=== PATIENT | female | born 1970 | race Caucasian/White ===

== ENCOUNTER 2018-01-18 12:30 | Outpatient (RCR) | payer MEDICAID, SELFPAY ==
--- NOTE | 2018-01-02 12:30 | IE_ITS ---
Date: January 02, 2018 Referring: Gilda Polanco MD M.D. Diagnosis: Bilateral thoracic outlet syndrome P.T. 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 SUBJECTIVE: History of Present Illness: Trena reporting to PT reporting a chronic history of bilateral UE paresthesias of 10-12 years of idiopathic origin. Reports a non -compliant history of seeking medical help from the pain clinic at [facility], with poor PCP follow up consultations. Admits she is not one to go to the doctor, which explains her lack of consistent medical care for her condition. She explains symptoms that involve bilateral UE numbness and tingling, hand numbness R greater than L, particularly through the medial distribution. Her main complaint and primary discomfort is of cervical, thoracic junction, paresthesias explaining a sensation of bugs, numbness, and fire at all times through the central aspect of her spine. She went camping over the weekend and feels she may have strained her L shoulder as she recalls falling at one point, but is not certain if this is the cause, but she is unable to lift her L arm without severe pain. This of course has made her paresthesias worse in the L UE. As of recent, she feels that she has had increase in poor vision, increase in migraine. She has noticed some episodes of what she calls vertigo where she explains she is standing next to an elevator door and she feels like the floor is moving up and down and this also happened to her one other time while standing in a bathroom. She does not report any dizziness with movement of her head. She denies drop attacks, double vision, denies vomiting, change in bladder or bowel habits or control. Overall feels steady with ambulation. Denies any LE weakness or pain. Her other main complaint is of remarkable sleep disruption, she reports only getting 45 to 60 mins of sleep at a time secondary to sensation of pain and pressure in her hands and UEs. Overall, only about 4-6 hours per night, but nothing consistent or productive. She denies ever attempting any wrist immobilizers, no tens unit. She does recall at one point being evaluated via nerve conduction studies to the UE's, but were (-) for any findings. She has never seen a air quality instrument specialist to her recollection. Pain Rating: Constantly 3/10, increasing up to a 7/10 when most symptomatic. Pain Location: Central cervical, thoracic junction, spreading laterally along the fascia, bilateral UE paresthesias explaining more R involved than L with median nerve distribution. Prior Level of Function: WNL Current Level of Function: Sleep disruption, she is even unable to do her dishes, open her car door, lift heavy objects, particularly new onset of L shoulder pain, difficulty manipulating objects in the morning her hands are numb to the point where she sometimes has a hard time doing toileting hygiene, and headaches. Previous Treatment: Did undergo some chiropractic manipulations without termite technician relief. She has been seen by the pain clinic in [facility] , reporting injections,all of which did not offer any relief. She does not specify what drugs were utilized due to poor memory recall of this. 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 Surgical hx: Insignificant. Falls in the last year: __x__ No ____Yes - How many? ____ - (if over 2, balance SM needs to be completed) Reported hospitalizations in the last year - __x__ No ____ Yes - Dates of admission/reason: Medications: Lyrica, Naproxen prn. Lyrica is a new prescription that she has not initiated yet. 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 She has 4 children, she is single. Standardized Measures: DASH score: __25%__ NDI score: __34%__ OBJECTIVE: Diagnostics: MRI completed on 02/20/15 identifying disc osteophyte complex at C4 -5 and C5-6 with mild central canal spinal stenosis C5-6 and bilateral neuroforaminal stenosis each of these levels. No recent diagnostics. Dr. Polanco finds the reported MRI results to be unremarkable. Posture: Remarkable protrusion of bilateral shoulders symmetrically with increase in thoracic kyphosis as a result, she is large chested, compensatory forward head and mid cervical extensions as a result. No obvious curvature of the spine, but when lying prone I do observe more hypertrophy of her L thoracic paraspinals compared to her R. Observation: (behavior, atrophy, skin color, etc.) Quick histamine response L thoracic paraspinals with IASTM, emotional with soft tissue mobilization over the cervical, thoracic region. She does communicate well, she appears exhausted from her pain. Gait: WNL, toe and heel walk WNL. Palpation: Sensitive to even light touch over the cervical, thoracic fascia, extend this to the upper traps, OA is tissue is restricted with a lot of tension , mild pain upon palpation. Has bilateral cervical, thoracic paraspinal tension L greater than R. UE not assessed today. Further assess L shoulder at later visit. Edema: None ROM: C-spine L rotation 60 degrees with R arm paresthesias, R rotation 50 degrees with R arm paresthesias, 20 degrees extension with paresthesias L arm, 45 degrees flexion with fascial stretching through the cervical, thoracic junction, no paresthesias. R UE WNL, non-irritable. L shoulder flexion 160, abduction 150, pain resulting over the superior/ posterior aspect of the shoulder. IR/ER WNL and non-irritable, otherwise bilateral UE's are WNL. Lumbar spine WNL and non-irritable. Joint Accessory Motion: Avoid PAs of the c-spine and thoracic spine due to pain dominant condition. Attempt some gentle articular sidegliding, producing severe pain at lower cervical segments with patient tearing. These were only performed at a grade 1++. This resulted in contralateral spine discomfort, no UE paresthesias. Strength: R UE is grossly 5/5 throughout. L shoulder flexion is 4+/5, L 4/5 with pain resulting, local to the L shoulder. IR/ER bilaterally 5/5. Distal elbow and digits are WNL. C-spine isometrics deferred due to pain dominant condition. Neuro: UE screen is (-) Balance: WNL with Romberg, and single leg stance. Special Tests: (+) Spurling's, relief with cervical traction, (+) Adson's, costoclavicular, (-) Phalen's and Prayer's testing. (-) Hawkin's Cesario impingement testing to the L shoulder, (+) empty can, (-) Speed's, (-) lift off. Treatment: IE: [id number] Patient Education: L UE shoulder stretching, passively utilizing wall into flexion/abduction as well as L lower trap isometric for postural correction. Instructed in sitting tall imaging helium balloon at top of her head, but not to over correct to reduce aggravation to her fascial tissue. Manual therapy: ([id number]). Manual cervical traction, unilateral traction, gentle cervical facet up gliding, soft tissue mobilization to the thoracic and cervical paraspinals, gentle OA release, IASTM down regulation to the cervical and thoracic paraspinals and bilateral upper traps. Rock taping applied with fascia on stretch through the cervical, thoracic paraspinals and perpendicular to this over the bilateral upper traps. Educated to use hot/cold modalities as needed for pain relief post treatment if she has exacerbation, and to utilize proper posture the best that she can. Direct treatment time: 70 mins Total treatment time: 70 mins ASSESSMENT: Patient is a 47-year-old female, referred for PT services with the diagnosis of bilateral TOS . Patient presents with clinical signs and symptoms consistent with bilateral TOS, L supraspinatus tendinitis, chronic soft tissue dysfunction of the cervical, thoracic region, and cervical nerve root compromise, likely related to degenerative changes in the c-spine. The patient is a pain dominant condition, as demonstrated by the following impairment level findings: Limited cervical ROM, soft tissue dysfunction through the cervical and thoracic region, L shoulder weakness, and isolated supraspinatus weakness, L shoulder mobility deficits, postural deficit/impairment, and poor intrinsic stability, and body awareness. Impairments are contributing to the following functional limitations:Difficulty manipulating any objects, particularly heavy objects, open/closing a door, remarkable sleep disruption, difficulty with self care activities in the a.m. hours, chronic headaches and migraines, and emotional distress. Patient is assessed as: ____ Low 74457 __X__ Moderate 16500 ____ High 37267 complexity, based on the following: History: (list): Anxiety and emotional distress due to chronic pain X See comorbidities and social history. Examination: (list): X See above for functional limitations and impairments. Presentation: Stable . X Evolving Unstable Decision-Making: Low complexity X Moderate complexity High complexity % Disability based on NDI of a 34% disability and DASH of a 25%. __X__ Patient requires skilled PT intervention to remediate the above functional limitations to return to: __X__ Return to full functional mobility __X__ Other: Pain management Prognosis: ____ Excellent __X__ Good ____ Fair ____ Poor STG: __6__ weeks. 1: NDI improved to 25% disability. 2: Dash improved to 20% disability. 3: Patient able to sleep up to an hour and half at one time consistently, getting a total of 7-8 hours per night. 4: Patient reporting overall improvement since initiating PT services of 40% improvement. LTG: __12__ weeks. 1: Able to continue with a self maintenance program. 2: Overall reporting 80% improvement since initiating PT services. 3: DASH and NDI decreased to at least 15% disability. 4: Headaches decreased to 2x a week of low pain intensity, not to exceed 2/10. 5: Patient is now sleeping 2 1/2 to 3 hours at a time for a total of 8 hours. PLAN: Patient to be seen 2 x per week, for 12 weeks, adjusting frequency of visits per patient symptoms and response to treatment. Treatment to include: Neuromuscular re-education for intrinsic deep neck flexor and lower trap, NTRA body awareness exercises and isometric training for proper spinal stability to reduce over recruitment of large muscle groups, currently suffering from soft tissue dysfunction. Therapeutic exercise for gross whole body conditioning and strengthening to return fascia to normal state. Manual therapy for c-spine and L shoulder mobilizations, soft tissue mobilization through the cervical and thoracic, and L shoulder girdle. Spinal mobilizations as tolerated, and bilateral nerve gliding. Electric stimulation for Tens unit set up and self use instruction Aquatic therapy for low impact exercise of the upper body, general intrinsic strengthening and mobility efforts, pain management. If patient has poor response to PT management over the next 3-4 weeks, I do feel spinal consultation is more than appropriate. Thank you for this referral. Please do not hesitate to contact me with any questions or concerns regarding this patient's plan of care. cc: Gilda Rothman MD
--- NOTE | 2018-01-11 14:18 | PTTR_ITS ---
DATE: 01/11/18 SUBJECTIVE: Pt reports that she has to leave to go back to work soon so she doesn't have a lot of time left for treatment. OBJECTIVE: Co Treatment with PT Batsheva Lozano Manual therapy: ([id number]). Pt received IASTM with down regulation while in the child pose position starting at the cervical para spinals down to the lumbar para spinals. Pt then transitioned into the seated position while in a forward posturing flexed position. Therapeutic procedures ([id number]). * X Provided skilled instruction in proper exercise performance: Pt completed cervical stabilization ther ex and scapular stabilization while in the prone position as per flow sheet 5 reps each to tolerance. Direct treatment time: 15 Total treatment time: 15
--- NOTE | 2018-01-11 14:31 | PTTR_ITS ---
DATE: 01/11/18 SUBJECTIVE: Trena reports she actually had 1-2 day relief following her first treatment. Rock tape offered relief for a few days, then began to itch, so she removed it. She think she is having some side affects from the Lyrica, such as head itching and diarrhea. She has not purchased wrist immobilizers. OBJECTIVE: KX applied to all codes N/A Manual therapy: ([id number]). L shoulder: Mobilization all planes, requiring use of AP MWM into flexion and quadrant position to reduce impingement discomfort. Supraspinatus tendon CFM, and muscle belly deep tissue mobilization. C-Spine: Manual traction, and unilateral traction, cervical massage facet upgliding. Articular side gliding bilaterally, grade 4++ B UE median and ulnar nerve flossing OA retraction, and flexion oscillations Mid cervical flexion stretching, with end range rotation to 30* Cervical paraspinal release, with OA release. Patient experienced rib and low back spasming throughout treatment, due to her position. She was transitioned to hooklying and review TrA, deep neck flexors, lower trap ad PPT position, which alleviated pain. She was then seen by Kalyani Moreira PTA for ther ex portion of treatment per my directions, see her note. Direct treatment time: 30 minutes Total treatment time: 30 minutes
--- NOTE | 2018-01-18 14:19 | PTTR_ITS ---
DATE: 01/18/18 SUBJECTIVE: Reduced pain in L shoulder, she has been compliant with her lower trap strengthening and using her core. Noticing less pressure in her head in the a.m. upon rising. Continues to struggle with daily pressure and myofasical pain through the neck and upper back. Feels her low back is a little better. Main complaint is off neck pain today. OBJECTIVE: Manual therapy: ([id number]). Unloading of c-spine via manual traction, and cervical facet upgliding. OA release Mid cervical flexion stretching, with end range rotation to 10* as tolerated. Articular sidegliding oscillations grade 4 STM throughout the cervical and upper thoracic paraspinals, posterior shoulder and upper trap L C1 and C2 PA's, grade 4. Upper cervical side glide mobilizations grade, with focus on L side, which demonstrated more restriction. C-spine mobs all planes, with good motion, but soft tissue restriction at end ranges. L shoulder mobilization with AP gliding at end range quadrant and flexion, no pain. AP gliding grade 4++ in neutral for genera desensitization. Patient Education: Reviewed tennis ball release at OA joint and reviewed L upper trap isometric vs. gravity in prone. Direct treatment time: 30 minutes Total treatment time: 30 minutes
== END 2018-01-20 23:59 | disposition home or self-care (01) ==
LOC: PT 12:30
PROVIDERS: PCP Physician Assistant Medical; Referring Provider Physician Assistant Medical; Visit Provider Physician Assistant Medical
DX: G54.0 Brachial plexus disorders (principal); M65.812 Other synovitis and tenosynovitis, left shoulder; M54.2 Cervicalgia; R20.2 Paresthesia of skin; M79.89 Other specified soft tissue disorders
CPT/HCPCS: 97110; 97140; 97162

== ENCOUNTER 2018-06-12 13:23 | Emergency (ER) | payer OTHER, MEDICAID, SELFPAY ==
[2018-06-12 13:27] VITALS: BP 180/108; PULSE 120; RESP 24; TEMP 36.3; O2SAT 97
--- NOTE | 2018-06-12 13:33 | W.ED.GENAD ---
Discharge Plan Disposition Patient Disposition: HOME Condition: Good Discharge Details Chief Complaint: Chest Pain Clinical Impression: Chest pain Primary Care Provider: Osman Gutiérrez ED Provider: Juan M Fu Home Meds and New Rx's Prescriptions: No Action naproxen 500 MG tablet 500 mg PO PRN PRN (Reason: Pain) RF: 0 Prilosec OTC 20 MG tablet,delayed release (DR/EC) 20 mg PO PRN Qty: 30 RF: 1 prazosin 2 mg Capsule 2 mg PO TID RF: 0 sumatriptan succinate 100 MG tablet 100 mg PO ONCE PRNRF: 0 lorazepam 2 mg tablet 2 mg PO DAILY MDD 2mg PRN (Reason: Anxiety) RF: 0 Discharge Instructions Instructions: Chest Pain (ED), Hypertension (ED) Additional Instructions: Please continue to take your home medications. If you notice any worsening of your symptoms, or any new symptoms such as vomiting, diarrhea, fever, chills, shortness of breath, chest pain, numbness, weakness, or fainting , please return immediately to the emergency department for reevaluation. Please follow up with your primary care provider as soon as possible for reassessment and reevaluation. As always, it was a pleasure participating in your medical care today. Referrals: Osman Gutiérrez PA [Primary Care Provider] - Discharge Data Discharge Date/Time-TO BE ENTERED AT DEPARTURE: 06/12/18 17:33 Medical Decision Making <Kush Sanabria MD - Last Filed: 06/13/18 10:47> 47 yo female with a hx of anxiety comes in with chief complaint of feeling shaky starting this morning and started to have chest pain while checking in to be seen here. She was started per pt on meloxicam last week for anxiety and states today was the first day she started to feel shaky and not herself. While being triaged she started to complain of sharp anterior chest pain. Denies radiation of the pain, has no diaphoresis or vomit. She does appear anxious on exam and took ativan prior to arrival for this so will hold on additional anxiety medications. She does smoke and drinks she states more than she should but doesn't drinnk every day, could have symptoms of mild alcohol withdrawal. Denies drug use. Her heart score is 3 based on age and risk factors, will obtain ecg. Her wells score is low, will send d dimer. She has clear lungs and no pleuritic pain so doubt ptx and no cough/fever so doubt pna. Has no tearing back pain to suggest dissection pt remains stable, HR now in the 90's and BP down to 150 systolic and states she feels significantly better. Initial lab work unremarkable other than d dimer over 1100 so cta ordered. Pt will be signed out to oncoming provider pending results of cta and also delta troponin/ekg Differential Diagnosis anxiety, nstemi, pe, dissection, electrolyte abnormality Imaging Data Radiologic Study: Attestation: I personally reviewed and interpreted this imaging study as follows: Imaging: X-Ray My impression: no acute findings Lab Data Lab results reviewed: Yes I reviewed the patient's lab results. ECG Data Attestation: I personally reviewed and interpreted this ECG (s) as follows: Prior ECG tracings: not available for review Interpretation: sinus tachcyardia, rate of 110, pr 170, no acute st t wave ischemic findings <Jua nM Fu DO - Last Filed: 06/12/18 17:20> Second EKG 16:35 Rate 97, WA 142 QTc 470, QRS 90, sinus rhythm, no significant ST elevations or depressions, inverted T wave in V1 small Q wave in lead III. No other acute abnormalities. EKG consistent with prior EKG earlier today. Patient's CT angiogram is negative for any acute process per radiology. Serial troponins and serial EKGs are benign. Patient's heart rate and blood pressure have normalized. She continues to look clinically well and shows no clear signs of severe DTs, severe anxiety, profound dehydration, and her signs and symptoms are clinically inconsistent with ACS, severe PE, dissection, or other acute chest pathology. I feel her symptoms may be multifactorial including mild dehydration, mild anxiety, and perhaps a mild amount of alcohol withdrawal. Patient states that she normally drinks at minimum is sixpack at night, last time she drank was 2 days ago on Tuesday. Her symptoms nearly completely resolved with her own Ativan which she took. With no signs of acute life-threatening process at this time I feel she can be safely discharged home with close follow-up with her primary care provider. We discussed the importance of continued medication adherence, and close follow-up with her PCP to discuss potential medication alternatives. I have extensively reviewed the treatment plan and discharge instructions with the patient. I have addressed all patient concerns at this time. The patient was made aware of what symptoms to monitor for that would warrant a return to the emergency department. Discussed the plan with the patient, they demonstrate verbal understanding and agreement with our assessment and plan at this time. HPI <Kush Sanabria MD - Last Filed: 06/13/18 10:47> General Mode of arrival: ambulatory. Date/Time Provider Initiated Documentation: 06/12/18 13:32. Limitations to Documentation: no limitations. Information obtained by: patient. History of Present Illness 47 year old F presents to the emergency department with the chief complaint of chest pain, described as moderate, with intensity rated at 4. Quality is described as aching, and is localized to the chest. Patient reports no radiation. Patient started experiencing this minute(s) (20) and it has been constant. No relieving factors improve symptom(s), Patient did receive the following treatments prior to arrival, other (ativan) Related Data Home Medications Medication Instructions Recorded Confirmed naproxen 500 mg PO PRN PRN tab-cap 03/10/15 06/12/18 omeprazole magnesium [Prilosec Otc] 20 mg PO PRN #30 tab-cap 01/05/18 06/12/18 lorazepam 2 mg PO DAILY PRN MDD 2mg 06/12/18 prazosin 2 mg PO TID 06/12/18 06/12/18 sumatriptan succinate 100 mg PO ONCE PRN 06/12/18 06/12/18 Previous Rx's Medication Instructions Recorded omeprazole magnesium [Prilosec Otc] 20 mg PO PRN #30 tab-cap 01/05/18 Allergies Allergy/AdvReac Type Severity Reaction Status Date / Time soy Allergy Intermediate Digestive Unverified 06/12/18 13:33 Problems lactase [From Dairy Aid] Allergy Mild Nausea Unverified 06/12/18 13:33 Penicillins Allergy Mild Hives Unverified 06/12/18 13:33 narcotic medications AdvReac Severe Nausea/projectile Uncoded 06/12/18 13:33 vomiting General Stated Complaint: Chest Pain MANDY: 2 Review of Systems <Kush Sanabria MD - Last Filed: 06/13/18 10:47> Review of Systems All systems reviewed & are unremarkable except as noted in HPI and below Constitutional Denies chills and Denies fever(s) Cardiovascular Denies dyspnea Respiratory Denies dyspnea Gastrointestinal Denies vomiting Integumentary/Breasts Denies rash PFSH <Kush Sanabria MD - Last Filed: 06/13/18 10:47> Social History Smoking/Tobacco Use Status: Current every day Exam <Kush Sanabria MD - Last Filed: 06/13/18 10:47> Const General: anxious Orientation: alert HENMT Head: normal to inspection Ears: external ears normal General nose exam: external nose normal Mouth: moist mucous membranes Eyes General: appearance normal, both eyes and all related structures Neck Neck: normal visual inspection Resp Effort & Inspection: normal respiratory effort and able to speak in complete sentences Cardio Jugular venous pressure: no JVD Skin General skin exam: no rashes or lesions noted Neuro General: alert and oriented x3 Extrem General: normal to inspection Psych Mental Status: mental status grossly normal Course <Kush Sanabria MD - Last Filed: 06/13/18 10:47> Vital Signs Temperature 36.3 C L 06/12/18 13:27 Pulse 120 H 06/12/18 13:27 Respiratory Rate 24 06/12/18 13:27 Blood Pressure 180/108 H 06/12/18 13:27 Pulse Oximetry 97 06/12/18 13:27 Temperature 36.3 C L 06/12/18 13:27 Pulse 120 H 06/12/18 13:27 Respiratory Rate 24 06/12/18 13:27 Blood Pressure 180/108 H 06/12/18 13:27 Pulse Oximetry 97 06/12/18 13:27 Oxygen Delivery Method Room Air 06/12/18 13:27 Oxygen Flow Rate 0 06/12/18 13:27 Pain Level 3 06/12/18 13:27
--- NOTE | 2018-06-12 13:44 | ED.GENADUL_ITS ---
Discharge Plan Disposition Patient Disposition: HOME Condition: Good Discharge Details Chief Complaint: Chest Pain Clinical Impression: Chest pain Primary Care Provider: Osman Gutiérrez ED Provider: Juan M Fu Home Meds and New Rx's Prescriptions: No Action naproxen 500 MG tablet 500 mg PO PRN PRN (Reason: Pain) RF: 0 Prilosec OTC 20 MG tablet,delayed release (DR/EC) 20 mg PO PRN Qty: 30 RF: 1 prazosin 2 mg Capsule 2 mg PO TID RF: 0 sumatriptan succinate 100 MG tablet 100 mg PO ONCE PRNRF: 0 lorazepam 2 mg tablet 2 mg PO DAILY MDD 2mg PRN (Reason: Anxiety) RF: 0 Discharge Instructions Instructions: Chest Pain (ED), Hypertension (ED) Additional Instructions: Please continue to take your home medications. If you notice any worsening of your symptoms, or any new symptoms such as vomiting, diarrhea, fever, chills, shortness of breath, chest pain, numbness, weakness, or fainting , please return immediately to the emergency department for reevaluation. Please follow up with your primary care provider as soon as possible for reassessment and reevaluation. As always, it was a pleasure participating in your medical care today. Referrals: Osman Gutiérrez PA [Primary Care Provider] - Discharge Data Discharge Date/Time-TO BE ENTERED AT DEPARTURE: 06/12/18 17:33 Medical Decision Making <Kush Sanabria MD - Last Filed: 06/13/18 10:47> 47 yo female with a hx of anxiety comes in with chief complaint of feeling shaky starting this morning and started to have chest pain while checking in to be seen here. She was started per pt on meloxicam last week for anxiety and states today was the first day she started to feel shaky and not herself. While being triaged she started to complain of sharp anterior chest pain. Denies radiation of the pain, has no diaphoresis or vomit. She does appear anxious on exam and took ativan prior to arrival for this so will hold on additional an xiety medications. She does smoke and drinks she states more than she should but doesn't drinnk every day, could have symptoms of mild alcohol withdrawal. Denies drug use. Her heart score is 3 based on age and risk factors, will obtain ecg. Her wells score is low, will send d dimer. She has clear lungs and no pleuritic pain so doubt ptx and no cough/fever so doubt pna. Has no tearing back pain to suggest dissection pt remains stable, HR now in the 90's and BP down to 150 systolic and states she feels significantly better. Initial lab work unremarkable other than d dimer over 1100 so cta ordered. Pt will be signed out to oncoming provider pending results of cta and also delta troponin/ekg Differential Diagnosis anxiety, nstemi, pe, dissection, electrolyte abnormality Imaging Data Radiologic Study: Attestation: I personally reviewed and interpreted this imaging study as follows: Imaging: X-Ray My impression: no acute findings Lab Data Lab results reviewed: Yes I reviewed the patient's lab results. ECG Data Attestation: I personally reviewed and interpreted this ECG (s) as follows: Prior ECG tracings: not available for review Interpretation: sinus tachcyardia, rate of 110, pr 170, no acute st t wave ischemic findings <Juan M Fu DO - Last Filed: 06/12/18 17:20> Second EKG 16:35 Rate 97, OR 142 QTc 470, QRS 90, sinus rhythm, no significant ST elevations or depressions, inverted T wave in V1 small Q wave in lead III. No other acute abnormalities. EKG consistent with prior EKG earlier today. Patient's CT angiogram is negative for any acute process per radiology. Serial troponins and serial EKGs are benign. Patient's heart rate and blood pressure have normalized. She continues to look clinically well and shows no clear signs of severe DTs, severe anxiety, profound dehydration, and her signs and symptoms are clinically inconsistent with ACS, severe PE, dissection, or other acute chest pathology. I feel her symptoms may be multifactorial including mild dehydration, mild anxiety, and perhaps a mild amount of alcohol withdrawal. Patient states that she normally drinks at minimum is sixpack at night, last time she drank was 2 days ago on Tuesday. Her symptoms nearly completely resolved with her own Ativan which she took. With no signs of acute life- threatening process at this time I feel she can be safely discharged home with close follow-up with her primary care provider. We discussed the importance of continued medication adherence, and close follow-up with her PCP to discuss potential medication alternatives. I have extensively reviewed the treatment plan and discharge instructions with the patient. I have addressed all patient concerns at this time. The patient was made aware of what symptoms to monitor for that would warrant a return to the emergency department. Discussed the plan with the patient, they demonstrate verbal understanding and agreement with our assessment and plan at this time. HPI <Kush Sanabria MD - Last Filed: 06/13/18 10:47> General Mode of arrival: ambulatory . Date/Time Provider Initiated Documentation: 06/12/18 13:32 . Limitations to Documentation: no limitations . Information obtained by: patient . History of Present Illness 47 year old F presents to the emergency department with the chief complaint of chest pain, described as moderate, with intensity rated at 4. Quality is described as aching, and is localized to the chest. Patient reports no radiation. Patient started experiencing this minute(s) (20) and it has been constant. No relieving factors improve symptom(s), Patient did receive the following treatments prior to arrival, other (ativan) Related Data Home Medications Medication Instructions Recorded Confirmed naproxen 500 mg PO PRN PRN tab-cap 03/10/15 06/12/18 omeprazole magnesium [Prilosec Otc] 20 mg PO PRN #30 tab-cap 01/05/18 06/12/18 lorazepam 2 mg PO DAILY PRN MDD 2mg 06/12/18 prazosin 2 mg PO TID 06/12/18 06/12/18 sumatriptan succinate 100 mg PO ONCE PRN 06/12/18 06/12/18 Previous Rx's Medication Instructions Recorded omeprazole magnesium [Prilosec Otc] 20 mg PO PRN #30 tab-cap 01/05/18 Allergies Allergy/AdvReac Type Severity Reaction Status Date / Time soy Allergy Intermediate Digestive Unverified 06/12/18 13:33 Problems lactase [From Dairy Aid] Allergy Mild Nausea Unverified 06/12/18 13:33 Penicillins Allergy Mild Hives Unverified 06/12/18 13:33 narcotic medications AdvReac Severe Nausea/projectile Uncoded 06/12/18 13:33 vomiting General Stated Complaint: Chest Pain MANDY: 2 Review of Systems <Kush Sanabria MD - Last Filed: 06/13/18 10:47> Review of Systems All systems reviewed & are unremarkable except as noted in HPI and below Constitutional Denies chills and Denies fever(s) Cardiovascular Denies dyspnea Respiratory Denies dyspnea Gastrointestinal Denies vomiting Integumentary/Breasts Denies rash PFSH <Kush Sanabria MD - Last Filed: 06/13/18 10:47> Social History Smoking/Tobacco Use Status: Current every day Exam <Kush Sanabria MD - Last Filed: 06/13/18 10:47> Const General: anxious Orientation: alert HENMT Head: normal to inspection Ears: external ears normal General nose exam: external nose normal Mouth: moist mucous membranes Eyes General: appearance normal, both eyes and all related structures Neck Neck: normal visual inspection Resp Effort & Inspection: normal respiratory effort and able to speak in complete sentences Cardio Jugular venous pressure: no JVD Skin General skin exam: no rashes or lesions noted Neuro General: alert and oriented x3 Extrem General: normal to inspection Psych Mental Status: mental status grossly normal Course <Kush Sanabria MD - Last Filed: 06/13/18 10:47> Vital Signs Temperature 36.3 C L 06/12/18 13:27 Pulse 120 H 06/12/18 13:27 Respiratory Rate 24 06/12/18 13:27 Blood Pressure 180/108 H 06/12/18 13:27 Pulse Oximetry 97 06/12/18 13:27 Temperature 36.3 C L 06/12/18 13:27 Pulse 120 H 06/12/18 13:27 Respiratory Rate 24 06/12/18 13:27 Blood Pressure 180/108 H 06/12/18 13:27 Pulse Oximetry 97 06/12/18 13:27 Oxygen Delivery Method Room Air 06/12/18 13:27 Oxygen Flow Rate 0 06/12/18 13:27 Pain Level 3 06/12/18 13:27
[2018-06-12] MEDS: Aspirin 81 MG CHEW 324 MG CH (13:57)
[2018-06-12 14:03] LABS: Absolute Basophil Count 0.02 k/cumm (0.0-0.2); Absolute Eosinophil Count 0.02 k/cumm (0.0-0.7); Absolute Lymphocyte Count 1.34 k/cumm (1.2-3.4); Absolute Monocyte Count 0.47 k/cumm (0.11-0.7); Absolute Neutrophil Count 3.49 k/cumm (1.2-6.7); Basophils % 0.4; Eosinophils % 0.4; HCT 36.7 % (36.0-46.0); HGB 12.1 g/dL (12.0-15.5); Lymphocytes % 25.1; Mean Corpuscular Hemoglobin 26.9 pg (27.0-33.0); Mean Corpuscular Volume 81.6 fL (80-95); Mean Platelet Volume 9.9 fL (8.0-11.0); Monocytes % 8.8; Neutrophils % 65.3; Platelet Count 369 x1000/uL (130-400); RBC Distribution Width 18.4 % (11.7-14.6); White Blood Cell Count 5.34 k/cumm (4.4-10.8)
--- NOTE | 2018-06-12 14:07 | DI.RAD_ITS ---
SYMPTOMS/DIAGNOSIS: CHEST PAIN CHEST X-RAY, PA AND LATERAL: Comparison is 01/23/13. The heart is normal in size. The lungs are clear. The mediastinal structures and pleura appear intact. IMPRESSION: Normal chest.
[2018-06-12] MEDS: Normal Saline 1,000 ML 1000 ML IV (14:14)
[2018-06-12 14:15] LABS: ALT 63 U/L (12-78); AST 63 U/L (15-37); Albumin 3.7 g/dL (3.4-5.0); Alkaline Phosphatase 66 U/L (46-116); Anion Gap 8.7 mmol/L (3-11); BUN 16 mg/dL (7-18); Bilirubin, Total 0.2 mg/dL (0.2-1.0); CO2 28.3 mmol/L (21.0-32.0); Calcium 9.1 mg/dL (8.5-10.1); Chloride 101 mmol/L (98-107); Glucose 126 mg/dL (70-100); Lipase 266 U/L (73-393); Magnesium 1.9 mg/dL (1.8-2.4); Potassium 3.6 mmol/L (3.5-5.1); Sodium 138 mmol/L (136-145); Total Protein 8.1 g/dL (6.4-8.2)
[2018-06-12 14:21] VITALS: BP 153/99; PULSE 101; RESP 14; O2SAT 97
[2018-06-12 14:26] LABS: Troponin I < 0.02 ng/mL (0.00-0.06)
[2018-06-12 14:27] LABS: Anisocytosis 1+; Diff Comment RBC Morph Reviewed
[2018-06-12 14:46] LABS: D-Dimer 1159 ng/mlFEU (<500)
--- NOTE | 2018-06-12 14:48 | DI.CT_ITS ---
SYMPTOMS/DIAGNOSIS: CHEST PAIN AND ELEVATED D-DIMER CT SCAN OF THE CHEST: CT angiography was performed with multi slice acquisition and multi planar and 3D reconstruction. CT scan of the chest was performed according to the pulmonary embolus protocol. There is no evidence of a pulmonary embolus. The thoracic aorta is of normal caliber. No aneurysmal dilatation or dissection is present. The heart size is within normal limits. No significant pericardial effusion is seen. No evidence of right ventricular dysfunction is present. No significant thoracic adenopathy is seen. No pleural effusion or pneumothorax is identified. No focal consolidating infiltrates are seen in the lungs. The tracheobronchial tree is unremarkable. Degenerative changes are seen in the spine. IMPRESSION: No evidence of a pulmonary embolus, thoracic aortic dissection or aneurysm. No acute pulmonary process. The findings were discussed with the Emergency Department on the date of the examination.
[2018-06-12 14:55] LABS: Bilirubin, Direct 0.06 mg/dL (0.00-0.20)
[2018-06-12] MEDS: Omnipaque 350 MG/ML 100 ML BTL IJ (15:46)
[2018-06-12 15:51] VITALS: BP 155/95; PULSE 99; RESP 18; O2SAT 98
--- NOTE | 2018-06-12 15:52 | NUR.NOTE ---
patient returned from CT, reports feeling anxious, MD in room rounding on patient Nursing Note:
[2018-06-12 16:51] VITALS: BP 129/82; PULSE 99; RESP 18; O2SAT 96
--- NOTE | 2018-06-12 16:52 | NUR.NOTE ---
patient reports no chest pain, second ekg completed and blood sent, patient ambulated without chest pain or sob Nursing Note:
--- NOTE | 2018-06-12 17:13 | NUR.NOTE ---
food tray ordered for patient Nursing Note:
[2018-06-12 17:14] LABS: Troponin I < 0.02 ng/mL (0.00-0.06)
--- NOTE | 2018-06-12 17:27 | NUR.NOTE ---
IV dc'd patient received discharge and follow up instruciton per MD orde rNursing Note:
--- NOTE | 2018-06-13 10:25 | CMPROGNOTE_ITS ---
Care Management Progress Note 06/13-Dr. Sanabria requested assistance with a PCP (Elizabeth Gutiérrez) f/u as soon as possible for chest pain and high blood pressure. Referral faxed to [facility] this am.
== END 2018-06-12 17:33 | disposition home or self-care (01) ==
PROVIDERS: Emergency Medicine; Emergency Provider Student in an Organized Health Care Education/Training Program; PCP Physician Assistant Medical
DX: R07.9 Chest pain, unspecified (principal); R00.0 Tachycardia, unspecified
CPT/HCPCS: 36415; 71275; 80053; 80076; 83690; 93005; 99285; 71046; 83735; 84484; 85025; 85379; 93010; J3490

== ENCOUNTER 2018-06-20 10:12 | Outpatient (REF) | payer OTHER, MEDICAID, SELFPAY ==
[2018-06-21 09:15] LABS: Hemoglobin A1C 5.9 % (4.5-6.2)
[2018-06-21 18:36] LABS: Cholesterol 273 mg/dL (50-200); HDL Cholesterol 58 mg/dL (40-60); LDL CHOLESTEROL 187 mg/dL (<100); Triglyceride 150 mg/dL (30-150)
== END 2018-06-20 10:32 ==
LOC: NCHCN 10:12
PROVIDERS: PCP Physician Assistant Medical; Visit Provider Physician Assistant Medical
DX: Z00.00 Encounter for general adult medical examination without abnormal findings (principal); R07.9 Chest pain, unspecified
CPT/HCPCS: 80061; 83721; 83036; 84443

== ENCOUNTER 2019-03-08 10:10 | Outpatient (REF) | payer OTHER, SELFPAY ==
--- NOTE | 2019-03-08 09:30 | SOFT_PTH ---
PATIENT: Trena Mike LOC: [facility] U#:[id number] AGE/SX: 48/F ROOM: RE03/08/[address]: Emili Cantrell MD : 1970 BED: DIS: 03/08/2019 SPEC #: [id number] RECD: 03/08/19 17:22 STATUS: TC REQ #: [id number] CURTIS: 03/08/19 09:[address]: Emili Cantrell DEPT: Surgical Specimen RECD BY: Kathryn Landry ENTERED: 03/08/19 17:22 SP TYPE: SOFT OTHR DR: Osman Gutiérrez Tissues: 1 - SOFT TISSUE MISC (INC. LIPOMA) Procedures: GROSS AND MICRO LEVEL 3 Comments: [id number]
== END 2019-03-08 10:30 ==
LOC: LBN 10:10
PROVIDERS: PCP Physician Assistant Medical; Visit Provider Surgery
DX: D17.22 Benign lipomatous neoplasm of skin and subcutaneous tissue of left arm (principal)
CPT/HCPCS: 88304

== ENCOUNTER 2020-03-14 08:31 | Outpatient (REF) | payer OTHER, SELFPAY ==
[2020-03-16 23:17] LABS: Patient Race White; SARS-CoV-2 RNA Undetected (Undetected); SARS-CoV-2 Specimen Source Nasal
== END 2020-03-14 08:51 ==
LOC: LBO 08:31
PROVIDERS: PCP Physician Assistant Medical; Visit Provider Nurse Practitioner Family
DX: Z11.59 Encounter for screening for other viral diseases (principal)
CPT/HCPCS: U0003

== ENCOUNTER 2020-04-15 09:16 | Emergency (ER) | payer OTHER, SELFPAY ==
[2020-04-15] VITALS (20 sets, daily range): BP systolic 118–160; BP diastolic 81–120; PULSE 70–116; RESP 8–27; TEMP 37; O2SAT 95–100
--- NOTE | 2020-04-15 09:17 | ED.GENADUL_ITS ---
Discharge Plan Disposition Patient Disposition: HOME Condition: Improving Discharge Details Clinical Impression: Colitis, Abdominal pain, Diarrhea Primary Care Provider: Osman Gutiérrez ED Provider: Agustina Christina Home Meds and New Rx's Prescriptions: New metronidazole [Flagyl] 500 mg tablet 500 mg PO TID 7 Days Qty: 21 RF: 0 ciprofloxacin HCl 500 mg tablet 500 mg PO BID 7 Days Qty: 14 RF: 0 Continued naproxen 500 MG tablet 500 mg PO PRN PRN (Reason: Pain) RF: 0 omeprazole magnesium [Prilosec OTC] 20 MG tablet,delayed release (DR/EC) 20 mg PO PRN Qty: 30 RF: 1 lorazepam 2 mg tablet 2 mg PO DAILY MDD 2mg PRN (Reason: Anxiety) Qty: 30 RF: 0 sumatriptan succinate 100 MG tablet 100 mg PO ONCE PRNRF: 0 prednisone 20 mg tablet 20 mg PO BID PRNRF: 0 Discharge Instructions Instructions: Acute Diarrhea (ED), Abdominal Pain (ED), Colitis (ED) Additional Instructions: Drink plenty of fluids and get plenty of rest. If your symptoms do not improve or worsen, you should start taking the antibiotics. Follow-up with your primary care doctor in 1 week. Return to the emergency department with any worsening or new concerning symptoms. Stand Alone Forms: Work Release Discharge Data Discharge Date/Time-TO BE ENTERED AT DEPARTURE: 04/15/20 12:02 Discharge Physician: Agustina Christina Medical Decision Making 0934 -- 49-year-old female with a history of anxiety, migraines who presents for lower abdominal pain and watery brown and bloody diarrhea for the past 2 days. Symptoms now improving. Heart rate 110s. She appears nontoxic and is afebrile. Her abdomen is soft and minimally tender in the right lower quadrant. Differential diagnosis includes colitis, gastroenteritis, UTI, pyelonephritis, appendicitis, diverticulitis. Will place an IV, bolus IV fluids, screening labs, urinalysis, urine test, CT abdomen and pelvis and give a dose of IV Toradol and reassess. Patient declined IV Toradol here. 1140 --labs and imaging reviewed. Labs unremarkable. Urinalysis negative. CT notes findings consistent with colitis. Patient reassessed and she feels much better. As she has had bloody diarrhea, will treat with oral antibiotics. Patient states as her symptoms are improving and she is feeling better, she would rather hold on antibiotics at this time unless symptoms do not improve or worsen. Will send with prescriptions for antibiotics. Will send with stool kit for home. Advised to follow up with the primary care doctor for re-evaluation. Usual and customary return precautions given prior to discharge. Medical Records Medical records reviewed: Yes I reviewed the patient's medical records. Imaging Data Radiologic Study: Radiologist's impression: CT ABDOMEN PELVIS W CLINICAL HISTORY: lower abd pain,diarrhea,r/o colitis/diverticulitis. TECHNIQUE: Imaging Protocol: Axial computed tomography images with coronal and sagittal reformatted images were created and reviewed CONTRAST MATERIAL: Intravenous: Omnipaque 350 Contrast volume:100 ml Oral: no COMPARISON: CT RENAL COLIC WO CONTRAST from 04/11/2014 FINDINGS: ABDOMEN: Lung Bases: Normal where visualized. Liver: Normal density. No measurable mass. Gallbladder and biliary tract: No radiodense calculus or dilation. Pancreas: Normal density, no abnormal calcifications or inflammatory process. Spleen: Normal. Kidneys: Normal size, contour and axis. No radiodense stones or obstructive uropathy. No masses seen. Adrenal glands: No masses seen. Abdominal Aorta: Abdominal portion non-dilated. PELVIS: Bladder: Symmetric distention, no gross wall thickening. Bowel: Diffuse wall thickening of the descending colon, consistent with colitis. A few diverticula are seen near the junction of the descending and sigmoid without surrounding inflammation. The appendix appears normal. The stomach and small bowel are unremarkable. Peritoneal cavity: No ascites, fluid collection or abscess. Bones: Within normal limits. Reproductive organs: Within normal limits. Lymph nodes: Unremarkable. Impression: Diffuse wall thickening of the descending colon, consistent with colitis. Lab Data Lab results reviewed: Yes I reviewed the patient's lab results. Labs: Laboratory Tests Range/Units 04/15/20 04/15/20 04/15/20 09:30 09:30 09:30 WBC (4.4-10.8) 10^3/uL 8.71 RBC (3.93-5.22) 10^6/uL 4.80 Hgb (11.2-15.7) g/dL 13.9 Hct (36.0-46.0) % 41.7 MCV (80-95) fL 86.9 MCH (27.0-33.0) pg 29.0 MCHC (32.0-36.0) % 33.3 RDW (11.7-14.6) % 15.2 H Plt Count (130-400) 10^3/uL 323 MPV (8.0-11.0) fL 9.8 Immature Gran % 0.2 Neutrophils % 67.8 Lymphocytes % 20.0 Monocytes % 10.0 Eosinophils % 1.8 Basophils % 0.2 Nucleated RBC % % 0 Absolute Neutrophils (1.2-6.7) 10^3/uL 5.90 Absolute Lymphocytes (1.2-3.4) 10^3/uL 1.74 Absolute Monocytes (0.1-0.8) 10^3/uL 0.87 H Absolute Eosinophils (0.0-0.7) 10^3/uL 0.16 Absolute Basophils (0.0-0.2) 10^3/uL 0.02 Sodium (136-145) mmol/L 137 Potassium (3.5-5.1) mmol/L 3.7 Chloride (98-107) mmol/L 102 Carbon Dioxide (21.0-32.0) mmol/L 24.7 Anion Gap (3-11) mmol/L 10.3 BUN (7-18) mg/dL 7 Creatinine (0.55-1.02) mg/dL 0.84 Estimated GFR/1.73 m2 (mL/min/1.73m2) >= 60.00 Glucose (74-106) mg/dL 125 H Calcium (8.5-10.1) mg/dL 8.8 Total Bilirubin (0.2-1.0) mg/dL 0.5 AST (15-37) U/L 14 L ALT (14-59) U/L 28 Alkaline Phosphatase (46-116) U/L 59 Total Protein (6.4-8.2) g/dL 7.9 Albumin (3.4-5.0) g/dL 3.7 Lipase (73-393) U/L Urine Color (Yellow) Urine Clarity (Clear) Urine pH (5-8) Ur Specific [place] (1.005-1.025) Urine Protein (Negative) mg/dL Urine Ketones (Negative) mg/dL Urine Blood (Negative) Urine Nitrite (Negative) Urine Bilirubin (Negative) Urine Urobilinogen (Up TO 0.2) EU/dL Ur Leukocyte Esterase (Negative) Urine RBC (0-2) HPF Urine WBC (0-5) HPF Ur Epithelial Cells (Negative) HPF Urine Crystals (Negative) HPF Urine Bacteria (Negative) HPF Urine Casts (Negative) LPF Urine Mucus (Negative) Ur Culture Indicated? Urine Glucose (Negative) mg/dL Patient ABO/Rh A Positive Antibody Screen Negative Range/Units 04/15/20 04/15/20 09:30 10:08 WBC (4.4-10.8) 10^3/uL RBC (3.93-5.22) 10^6/uL Hgb (11.2-15.7) g/dL Hct (36.0-46.0) % MCV (80-95) fL MCH (27.0-33.0) pg MCHC (32.0-36.0) % RDW (11.7-14.6) % Plt Count (130-400) 10^3/uL MPV (8.0-11.0) fL Immature Gran % Neutrophils % Lymphocytes % Monocytes % Eosinophils % Basophils % Nucleated RBC % % Absolute Neutrophils (1.2-6.7) 10^3/uL Absolute Lymphocytes (1.2-3.4) 10^3/uL Absolute Monocytes (0.1-0.8) 10^3/uL Absolute Eosinophils (0.0-0.7) 10^3/uL Absolute Basophils (0.0-0.2) 10^3/uL Sodium (136-145) mmol/L Potassium (3.5-5.1) mmol/L Chloride (98-107) mmol/L Carbon Dioxide (21.0-32.0) mmol/L Anion Gap (3-11) mmol/L BUN (7-18) mg/dL Creatinine (0.55-1.02) mg/dL Estimated GFR/1.73 m2 (mL/min/1.73m2) Glucose (74-106) mg/dL Calcium (8.5-10.1) mg/dL Total Bilirubin (0.2-1.0) mg/dL AST (15-37) U/L ALT (14-59) U/L Alkaline Phosphatase (46-116) U/L Total Protein (6.4-8.2) g/dL Albumin (3.4-5.0) g/dL Lipase (73-393) U/L 124 Urine Color (Yellow) Yellow Urine Clarity (Clear) Sl cloudy Urine pH (5-8) 7.0 Ur Specific [place] (1.005-1.025) 1.015 Urine Protein (Negative) mg/dL Negative Urine Ketones (Negative) mg/dL Negative Urine Blood (Negative) Trace-lysed H Urine Nitrite (Negative) Negative Urine Bilirubin (Negative) Negative Urine Urobilinogen (Up TO 0.2) EU/dL 0.2 Ur Leukocyte Esterase (Negative) Negative Urine RBC (0-2) HPF 3-5 H Urine WBC (0-5) HPF 0-2 Ur Epithelial Cells (Negative) HPF Rare Urine Crystals (Negative) HPF Negative Urine Bacteria (Negative) HPF Rare Urine Casts (Negative) LPF Negative Urine Mucus (Negative) Trace Ur Culture Indicated? No Urine Glucose (Negative) mg/dL Negative Patient ABO/Rh Antibody Screen HPI General Mode of arrival: ambulatory . Date/Time Provider Initiated Documentation: 04/15/20 09:17 . Limitations to Documentation: no limitations . Information obtained by: patient . HPI Narrative: Patient is a 49-year-old female with a history of migraine, anxiety, hyperlipidemia who presents for lower abdominal pain and bloody diarrhea for the past 2 days. Patient states she ate fried food 3 days ago and developed abdominal pain and diarrhea 1 day after. She states she usually has a reaction of vomiting to fried food but usually nonbloody diarrhea. She states she had multiple episodes every 30 minutes of watery brown mucousy bright red blood in stool yesterday. She states this morning she has had more formed stool but still with some mucus and blood. She states her abdominal pain is intermittent, crampy and located in the lower abdomen. She denies any pain at present. She does not take any medication for her pain. She denies fever, cough, chest pain, nausea, vomiting, urinary symptoms, recent travel, recent antibiotics, recent sick contacts or recent known exposure to coronavirus or recent hospital admissions. Related Data Home Medications Medication Instructions Recorded Confirmed naproxen 500 mg PO PRN PRN tab-cap 03/10/15 04/15/20 omeprazole magnesium [Prilosec OTC] 20 mg PO PRN #30 tab-cap 01/05/18 04/15/20 sumatriptan succinate 100 mg PO ONCE PRN 06/12/18 04/15/20 lorazepam 2 mg tablet 2 mg PO DAILY PRN #30 tab MDD 2mg 07/31/18 04/15/20 ciprofloxacin HCl 500 mg PO BID 7 Days #14 tab 04/15/20 metronidazole [Flagyl] 500 mg PO TID 7 Days #21 tab 04/15/20 prednisone 20 mg PO BID PRN 04/15/20 04/15/20 Previous Rx's Medication Instructions Recorded omeprazole magnesium [Prilosec OTC] 20 mg PO PRN #30 tab-cap 01/05/18 lorazepam 2 mg tablet 2 mg PO DAILY PRN #30 tab MDD 2mg 07/31/18 ciprofloxacin HCl 500 mg PO BID 7 Days #14 tab 04/15/20 metronidazole [Flagyl] 500 mg PO TID 7 Days #21 tab 04/15/20 Allergies Allergy/AdvReac Type Severity Reaction Status Date / Time soy Allergy Intermediate Digestive Verified 04/15/20 09:28 Problems lactase [From Dairy Aid] Allergy Mild Nausea Verified 04/15/20 09:28 Penicillins Allergy Mild Hives Verified 04/15/20 09:28 narcotic medications AdvReac Severe Nausea/projectile Uncoded 04/15/20 09:28 vomiting General MANDY: 2 Review of Systems All systems reviewed & are unremarkable except as noted in HPI and below Constitutional Constitutional: Reports as per HPI, Denies chills and Denies fever(s) Eyes Eyes: Denies blurry vision ENT Ears, Nose, Mouth, and Throat: Denies dizziness, Denies sore throat and Denies throat swelling Cardiovascular Cardiovascular: Denies chest pain and Denies dyspnea Respiratory Respiratory: Denies cough and Denies dyspnea Gastrointestinal Gastrointestinal: Reports abdominal pain, Reports diarrhea and Denies vomiting Genitourinary Genitourinary: Denies hematuria and Denies dysuria Musculoskeletal Musculoskeletal: Denies back pain and Denies numbness Integumentary/Breasts Skin/Breast: Denies lesions and Denies rash Neurologic Neurologic: Denies dizziness, Denies localized weakness and Denies numbness Allergic/Immunologic Allergic/Immunologic: Denies throat swelling [facility] Medical History (Updated 04/15/20 @ 11:40 by Agustina Christina DO) Abnormal Papanicolaou smear of cervix Anxiety Cervical radiculopathy Chest pain Elevated blood pressure reading HPV in female Hyperlipidemia Medial epicondylitis Migraine headache Multiple lipomas Neck pain Social History Smoking/Tobacco Use Status: Former Tobacco Use Smoking risk assessment performed?: Yes Alcohol Intake: current Alcohol Intake frequency: a few times a week Drug use: Daily Substance use type: marijuana Current gender identity: female Do you feel safe at home: Yes Do you feel safe in your relationship?: Yes Exam Const General: cooperative, healthy appearing and no acute distress HENMT Head: normal to inspection Face and sinus: normal facial exam Eyes General: appearance normal, both eyes and all related structures EOM: EOM intact bilaterally Neck Neck: normal visual inspection and No submandibular swelling Lymphatic: no lymphadenopathy noted Chest Chest: normal inspection of the chest and no tenderness Resp Effort & Inspection: normal respiratory effort and able to speak in complete sentences Auscultation: clear to auscultation bilaterally Cardio Rate: regular rate Rhythm: regular rhythm GI Inspection: normal to inspection Palpation: soft, not firm, not rigid and tender in the RLQ (minimal ); with no rebound tenderness Auscultation: hypoactive bowel sounds Back/Spine/Pelvis Back: no CVA tenderness Thoracic/Lumbar Spine: thoracic and lumbar spine normal to inspection Pelvis: no pain with anterior-posterior compression Skin General skin exam: no rashes or lesions noted Neuro General: patient alert, patient awake and patient oriented x3 Cognition: normal cognition Speech: speech normal Motor: muscle tone normal throughout Sensory Exam: no sensory deficits noted Extrem General: normal to inspection, full ROM, capillary refill normal, no calf tenderness bilaterally and no edema Psych Appearance: grossly normal Mental Status: mental status grossly normal Speech and Movement: speech and movement normal Affect: normal affect
[2020-04-15 09:39] LABS: Abs Immature Grans 0.02 10^3/uL (0.0-0.06); Absolute Basophil Count 0.02 10^3/uL (0.0-0.2); Absolute Eosinophil Count 0.16 10^3/uL (0.0-0.7); Absolute Lymphocyte Count 1.74 10^3/uL (1.2-3.4); Absolute Monocyte Count 0.87 10^3/uL (0.1-0.8); Basophils % 0.2; Eosinophils % 1.8; HCT 41.7 % (36.0-46.0); HGB 13.9 g/dL (11.2-15.7); Immature Grans % 0.2; MCHC 33.3 % (32.0-36.0); MCV 86.9 fL (80-95); MPV 9.8 fL (8.0-11.0); Neutrophils % 67.8; Nucleated RBC 0 %; Platelet Count 323 10^3/uL (130-400); RDW 15.2 % (11.7-14.6); WBC 8.71 10^3/uL (4.4-10.8)
--- NOTE | 2020-04-15 09:45 | DI.CT_ITS ---
EXAM: CT ABDOMEN PELVIS W CLINICAL HISTORY: lower abd pain,diarrhea,r/o colitis/diverticulitis. TECHNIQUE: Imaging Protocol: Axial computed tomography images with coronal and sagittal reformatted images were created and reviewed CONTRAST MATERIAL: Intravenous: Omnipaque 350 Contrast volume:100 ml Oral: no COMPARISON: CT RENAL COLIC WO CONTRAST from 04/11/2014 FINDINGS: ABDOMEN: Lung Bases: Normal where visualized. Liver: Normal density. No measurable mass. Gallbladder and biliary tract: No radiodense calculus or dilation. Pancreas: Normal density, no abnormal calcifications or inflammatory process. Spleen: Normal. Kidneys: Normal size, contour and axis. No radiodense stones or obstructive uropathy. No masses seen. Adrenal glands: No masses seen. Abdominal Aorta: Abdominal portion non-dilated. PELVIS: Bladder: Symmetric distention, no gross wall thickening. Bowel: Diffuse wall thickening of the descending colon, consistent with colitis. A few diverticula a re seen near the junction of the descending and sigmoid without surrounding inflammation. The append ix appears normal. The stomach and small bowel are unremarkable. Peritoneal cavity: No ascites, fluid collection or abscess. Bones: Within normal limits. Reproductive organs: Within normal limits. Lymph nodes: Unremarkable. Impression: Diffuse wall thickening of the descending colon, consistent with colitis. RADIATION DOSE DELIVERED: 984.57mGy.cm Total DLP DATA REPOSITORY: All CT scans at this facility are submitted to the National Radiology Data Registry (NRDR) Dose Index Registry (DIR) with the [employer] ([employer]). RADIATION OPTIMIZATION: All CT scans at this facility use at least one of these dose optimization te chniques: automated exposure control; mA and/or kV adjustment per patient size (includes targeted exa ms where dose is matched to clinical indication); or iterative reconstruction.
[2020-04-15 09:55] LABS: ALT 28 U/L (14-59); AST 14 U/L (15-37); Albumin 3.7 g/dL (3.4-5.0); Alkaline Phosphatase 59 U/L (46-116); Anion Gap 10.3 mmol/L (3-11); BUN 7 mg/dL (7-18); Bilirubin, Total 0.5 mg/dL (0.2-1.0); CO2 24.7 mmol/L (21.0-32.0); CREATININE 0.84 mg/dL (0.55-1.02); Calcium 8.8 mg/dL (8.5-10.1); Chloride 102 mmol/L (98-107); Glucose 125 mg/dL (74-106); Potassium 3.7 mmol/L (3.5-5.1); Sodium 137 mmol/L (136-145); Total Protein 7.9 g/dL (6.4-8.2)
[2020-04-15] MEDS: Normal Saline 1,000 ML 1000 ML IV (10:10)
[2020-04-15] MEDS: Normal Saline Flush 10 ML SYR IVP (10:10)
[2020-04-15 10:12] LABS: Lipase 124 U/L (73-393)
[2020-04-15 10:12] LABS: Bilirubin Negative (Negative); Blood Trace-lysed (Negative); Clarity Sl Cloudy (Clear); Glucose Negative (Negative); Ketones Negative (Negative); Leukocyte Esterase Negative (Negative); Nitrite Negative (Negative); Specific Gravity 1.015 (1.005-1.025); Urobilinogen 0.2 EU/dL (Up TO 0.2)
[2020-04-15 10:22] LABS: Bacteria Rare HPF (Negative); Crystals Negative HPF (Negative); Epithelial Cells Rare HPF (Negative); Mucus Trace (Negative); WBC 0-2 HPF (0-5)
[2020-04-15 10:23] LABS: C & S Indicated? No; Casts Negative LPF (Negative)
[2020-04-15] MEDS: Omnipaque 350 MG/ML 100 ML BTL IJ (10:45)
[2020-04-15] MEDS: Normal Saline - Diluent 50 ML VIAL IV (10:46)
== END 2020-04-15 12:02 | disposition home or self-care (01) ==
PROVIDERS: Emergency Provider Physician Assistant; PCP Physician Assistant Medical
DX: K52.9 Noninfective gastroenteritis and colitis, unspecified (principal); R10.31 Right lower quadrant pain
CPT/HCPCS: 36415; 80053; 81025; 83690; 86850; 86900; 86901; 96360; 96361; 99285; 74177; 81003; 81015; 85025; J3490

== ENCOUNTER 2021-01-14 10:55 | Day surgery (SDC) | payer OTHER, SELFPAY ==
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
--- NOTE | 2021-01-14 07:06 | ROE_ITS ---
Date of service: 01/14/21 Time of Service: 14:06 Operative Note Operative Note DATE OF PROCEDURE: 01/14/21 PRE-OP DIAGNOSIS: multiple lipomas POST-OP DIAGNOSIS: same PROCEDURE: excision of lipomas SURGEON: Alicia Daniel PERIANESTHESIA MANAGER: Kandi Ellis ANESTHESIA TYPE: Local By Surgeon (1% Lidocaine with epi) Refer to Anesthesia Record ESTIMATED BLOOD LOSS: 15 PATHOLOGY: none sent COMPLICATIONS: None Patient was transported to: same day Patient's condition: stable Indications: Patient has 3 lipomas. One on the left arm appears deep and may require cautery. And I think this should be attempted as a outpatient procedure at the hospital with cautery present. I discussed with the patient that she could expect during the procedure post procedurally, recovery time (2 weeks), and risks including but not limited to: Bleeding, infection, scarring, recurrence, need to heal by secondary intent, and recurrence, incomplete resolution of pain by removal, or numbness following removal. Patient does give consent and will be scheduled by my office. Procedure Description: After informed consent was obtained the patient was walked into the OR and placed in a supine position on the OR table. Monitors were applied. Her right arm was placed above her head. The sites, which were marked in SDS, were prepped and draped. A time out was done and the patients name, , procedure to be done, allergies to medications were reviewed. Next the sites on the right arm were infiltrated with 1% Lidocaine with epinephrine. Once the skin and subcutaneous tissues were numb an incision was made over the larger lipoma. Dissection was done around the lipomas with iris scissors. 3 lipomas were removed that were right next to each other. They measured 1 x 2, 1 x 1 and 0.5 x 1 cm. Next an incision was made over the smaller lipoma. Dissection was done around the 2 x 1 cm lipoma with iris scissors. Once it was released from its attachements it was removed. Both incisions were closed with 4-0 vicryl. The skin was cleaned and dried and skin affix was applied. The drapes were removed. Her right arm was placed next to her and she was asked to lift her left arm above her head. The lipoma had been previously marked. The skin was prepped and draped in a standard fashion. Lidocaine was injected into the dermis and subcutaneous tissue. An incision was made with a 15 blade. Dissection was done around a 1 x 1.5 cm lipoma with iris scissors. Once the lipoma was removed the skin was re- approximated with 4-0 vircyl. The skin was cleaned and dried and skin affix was applied. The drapes were removed and the patient was taken back to [facility] in stable condition. She tolerated the procedure well and there were no immediate complications.
--- NOTE | 2021-01-14 07:07 | W.PM.DSUDISC ---
Discharge Plan Disposition Patient Disposition: HOME Condition: Good Discharge Details Reason For Visit: multiple lipomas Attending Provider: Alicia Daniel Primary Care Provider: Osman Gutiérrez Home Meds and New Rx's Prescriptions: Continued naproxen 500 MG tablet 500 mg PO PRN PRN (Reason: Pain) RF: 0 omeprazole magnesium [Prilosec OTC] 20 MG tablet,delayed release (DR/EC) 20 mg PO PRN Qty: 30 RF: 1 lorazepam 2 mg tablet 2 mg PO DAILY MDD 2mg PRN (Reason: Anxiety) Qty: 30 RF: 0 sumatriptan succinate 100 mg tablet 100 mg PO ONCE PRN (Reason: migraine headache) Qty: 9 RF: 0 Discharge Instructions Additional Instructions: Activity at Home after surgery: 1. As tolerated Diet, Nutrition, & wound healin. As tolerated Pain Medications: 1. Tylenol 650mg every 6 hours as needed and Ibuprofen 600 mg every 6 hours as needed. You may alternate between the 2 medications every 3 hours 2. If a narcotic has been prescribed take as directed only for breakthrough pain For Constipation: 1. Take Milk of Magnesia or MiraLax as needed for constipation Other: 1. You may shower daily. Do not scrub the incisions 2. Do not soak the incisions for 1 week 3. You may alternate ice and heat as needed for pain and swelling Wound Care: 1. Keep the incisions clean and dry Please call our office if you develop: 1. Fevers >101.5 2. Nausea or Vomiting 3. Worsening pain 4. Redness and thick discharge from the wounds If after hours please call the Hospital at and ask to speak to the on-call surgeon Activity:: Activity as Tolerated Diet:: As Tolerated Discharge Orders Discharge Orders: Discharge Order (Routine); Ordered 01/14/21 Ordered By: Alicia Daniel DS: Diagnosis Discharge Diagnosis (1) Multiple lipomas: Status: Chronic
[2021-01-14 11:15] VITALS: BP 149/94; PULSE 94; RESP 16; TEMP 36.4; O2SAT 97
[2021-01-14 14:42] VITALS: BP 168/109; PULSE 81; RESP 18; TEMP 36.4; O2SAT 98
== END 2021-01-14 14:40 | disposition home or self-care (01) ==
LOC: SUR 10:56
PROVIDERS: PCP Physician Assistant Medical; Visit Provider Surgery
PROC: (CPT 11402; principal; 2021-01-14 11:45)
DX: D17.22 Benign lipomatous neoplasm of skin and subcutaneous tissue of left arm (principal); D17.21 Benign lipomatous neoplasm of skin and subcutaneous tissue of right arm
CPT/HCPCS: 11402 ×3; 11401

== ENCOUNTER 2021-04-15 17:18 | Outpatient (REF) | payer OTHER, SELFPAY ==
[2021-04-15 18:20] LABS: Hemoglobin A1C 5.7 % (<5.7)
[2021-04-15 18:26] LABS: ALT 27 U/L (14-59); AST 19 U/L (15-37); Alkaline Phosphatase 65 U/L (46-116); Anion Gap 10.4 mmol/L (3-11); BUN 20 mg/dL (7-18); Bilirubin, Total 0.4 mg/dL (0.2-1.0); CO2 25.6 mmol/L (21.0-32.0); CREATININE 0.9 mg/dL (0.55-1.02); Calcium 9.5 mg/dL (8.5-10.1); Chloride 103 mmol/L (98-107); Glucose 119 mg/dL (74-106); Potassium 4.5 mmol/L (3.5-5.1); Sodium 139 mmol/L (136-145); TSH (W/Ref FT4) 1.27 uIU/mL (0.36-3.74); Total Protein 7.6 g/dL (6.4-8.2)
[2021-04-15 18:38] LABS: Calculated LDL 199 mg/dL (<100); Cholesterol 287 mg/dL (<200); HDL Cholesterol 60 mg/dL (40-60); Triglyceride 144 mg/dL (<150)
== END 2021-04-15 17:19 | disposition home or self-care (01) ==
LOC: LBN 17:18
PROVIDERS: PCP Physician Assistant Medical; Visit Provider Physician Assistant
DX: I10 Essential (primary) hypertension (principal)
CPT/HCPCS: 80053; 80061; 83036; 84443

== ENCOUNTER 2021-04-24 16:50 | Outpatient (REF) | payer OTHER, SELFPAY ==
[2021-04-26 01:39] LABS: COVID-19 RT-PCR UVMMC Result Negative (Negative)
== END 2021-04-24 16:51 | disposition home or self-care (01) ==
LOC: NCHCN 16:50
PROVIDERS: PCP Physician Assistant Medical; Visit Provider Physician Assistant
DX: Z20.822 Contact with and (suspected) exposure to COVID-19 (principal)
CPT/HCPCS: U0003

== ENCOUNTER 2021-05-04 16:49 | Outpatient (REF) | payer OTHER, SELFPAY ==
[2021-05-05 02:58] LABS: COVID-19 RT-PCR UVMMC Result Negative (Negative)
== END 2021-05-04 16:50 | disposition home or self-care (01) ==
LOC: NCHCN 16:49
PROVIDERS: PCP Physician Assistant Medical; Visit Provider Nurse Practitioner Family
DX: Z20.822 Contact with and (suspected) exposure to COVID-19 (principal)
CPT/HCPCS: U0003

== ENCOUNTER 2021-07-10 00:18 | Outpatient (CLI) | payer OTHER, SELFPAY ==
--- NOTE | 2021-07-10 | DI.MAMMO_ITS ---
Exam(s) MAMMO SCREENING EXAM: MAMMO SCREENING CLINICAL HISTORY: HEALTH EXAM Z00.8, SCREENING FOR BREAST CANCER TECHNIQUE: Bilateral full field digital CC and MLO mammographic images were obtained with 3D tomosyn thesis and utilizing computer aided detection (CAD). COMPARISON: None. FINDINGS: Masses/Architectural Distortion: There is a question of a partially obscured nodular density in the u pper right breast on the MLO view. Microcalcifications: No suspicious pleomorphic-type are seen. Skin Thickening/Nipple Retraction: None. IMPRESSION: 1. Question of a partially obscured nodular density in the upper right breast on the MLO view. 2. Spot compression views requested for further evaluation. Ultrasound may be indicated at that time . BI-RADS Category 0 - Assessment Incomplete: Need additional imaging evaluation Breast Density - Category B - Scattered areas of fibroglandular density Breast density category C or D implies that the patient has dense breast tissue. Dense breast tissue is very common and is not abnormal but dense breast tissue can make it harder to find cancer on a ma mmogram. Also, dense breast tissue may increase their breast cancer risk. This information about the result of the mammogram report was provided to the patient to raise their awareness. Use this report when you speak with the patient about their risks for breast cancer, which includes their family hist ory. At that time, you may recommend for more screening tests (Ultrasound or MRI) as they might be us eful based on their risk. A negative radiographic report should not delay biopsy if a dominant or clinically suspicious mass is present. Up to ten percent of cancers are not identified on mammography. A negative report may reinforce clinical impression. Adenosis and dense breasts may obscure an underlying neoplasm. False positive reports average 6 to 10%. Patient will receive a letter notifying them of these results.
== END 2021-07-10 00:38 ==
PROVIDERS: PCP Physician Assistant Medical; Visit Provider Physician Assistant Medical
DX: Z12.31 Encounter for screening mammogram for malignant neoplasm of breast (principal); R92.8 Other abnormal and inconclusive findings on diagnostic imaging of breast
CPT/HCPCS: 77063; 77067

== ENCOUNTER 2021-07-17 02:15 | Outpatient (CLI) | payer OTHER, SELFPAY ==
--- NOTE | 2021-07-17 | DI.US_ITS ---
Exam(s) US BREAST RT COMPLETE EXAM: US BREAST RT COMPLETE CLINICAL HISTORY: OBSCURED NODULAR DENSITY RT BREAST. TECHNIQUE: Complete ultrasound of the right breast was performed including all 4 quadrants, the retr oareolar region, and the ipsilateral axilla. COMPARISON: Prior baseline mammogram of 07/10/2019 was reviewed. FINDINGS: There is a solitary finding which is at the 11 o'clock position and has appearance of a small lymph n ode measuring 4.4 x 3.6 millimeter and most probably corresponding to the nodule on the mammogram. There is no ultrasound finding to correspond to the other nodule described on the mammogram which dis sipated on diagnostic spot compression mammographic view performed today. IMPRESSION: Benign right breast ultrasound findings. Appropriate follow-up is repeat right breast mammogram in 6 months to ensure stability. BI-RADS Category 3 - 6 month - Probably Benign Finding: Recommend follow-up mammography in 6 months Breast Density - Category B - Scattered areas of fibroglandular density Breast density Category C or D implies that the patient has dense breast tissue. Dense breast tissue can make it harder to find cancer on a mammogram. Dense breast tissue is also associated with an incr eased risk of breast cancer. This information about the result of the mammogram report was provided to the patient to raise their awareness. Use this report when you speak with the patient about their risks for breast cancer, which includes their family history. At that time, you may recommend additional screening tests (Ultrasoun d or MRI) as these tests may add significant information. A negative radiographic report should not delay biopsy if a dominant or clinically suspicious mass is present. Up to ten percent of cancers are not identified on mammography. A negative report may reinforce clinical impression. Adenosis and dense breasts may obscure an underlying neoplasm. False positive reports average 6 to 10%. Patient will receive a letter notifying them of these results.
--- NOTE | 2021-07-17 09:15 | DI.MAMMO_ITS ---
Exam(s) MAMMO SCREEN CALL BACK UNI EXAM: MAMMO SCREEN CALL BACK UNI- RIGHT AND COMPLETE RIGHT BREAST ULTRASOUND CLINICAL HISTORY: OBSCURED NODULAR DENSITY RT BREAST. TECHNIQUE: Unilateral spot mammographic images obtained with 3D tomosynthesisand utilizing computer aided detection (CAD). . Complete RIGHT breast Ultrasound was also performed, including all 4 quadrants, the retroareolar nilo on, and the ipsilateral axilla. COMPARISON: Prior baseline SCREENING mammograms was reviewed. FINDINGS: Additional mammographic views performed todayrender this area less concerning. Ultrasound performed today reveals no evidence of concerning nodule.. At the 11 o'clock position the re is a small finding having the appearance of a lymph node which corresponds to the other benign-alona earing finding on the baseline mammogram. IMPRESSION: Benign-appearing findings in the right breast Appropriate follow-up is repeat right breast mammogram in 6 months. The patient was informed of these findings and recommendations prior to leaving the department today. BI-RADS Category 3 - 6 month - Probably Benign Finding: Recommend follow-up mammography in 6 months Breast Density - Category B - Scattered areas of fibroglandular density Breast density Category C or D implies that the patient has dense breast tissue. Dense breast tissue can make it harder to find cancer on a mammogram. Dense breast tissue is also associated with an incr eased risk of breast cancer. This information about the result of the mammogram report was provided to the patient to raise their awareness. Use this report when you speak with the patient about their risks for breast cancer, which includes their family history. At that time, you may recommend additional screening tests (Ultrasoun d or MRI) as these tests may add significant information. A negative radiographic report should not delay biopsy if a dominant or clinically suspicious mass is present. Up to ten percent of cancers are not identified on mammography. A negative report may reinforce clinical impression. Adenosis and dense breasts may obscure an underlying neoplasm. False positive reports average 6 to 10%. Patient will receive a letter notifying them of these results.
== END 2021-07-17 02:35 ==
PROVIDERS: PCP Physician Assistant Medical; Visit Provider Physician Assistant Medical
DX: Z12.31 Encounter for screening mammogram for malignant neoplasm of breast (principal); R92.8 Other abnormal and inconclusive findings on diagnostic imaging of breast; N64.59 Other signs and symptoms in breast
CPT/HCPCS: 76642; 77063; 77067

== ENCOUNTER 2021-07-29 15:04 | Outpatient (REF) | payer OTHER, SELFPAY ==
[2021-07-30] LABS: COVID-19 RT-PCR UVMMC Result Negative (Negative)
== END 2021-07-29 15:05 | disposition home or self-care (01) ==
LOC: LBN 15:04
PROVIDERS: PCP Physician Assistant Medical; Visit Provider Nurse Practitioner Family
DX: J98.8 Other specified respiratory disorders (principal); Z20.822 Contact with and (suspected) exposure to COVID-19
CPT/HCPCS: U0003

== ENCOUNTER 2021-11-17 15:32 | Outpatient (REF) | payer OTHER, SELFPAY ==
[2021-11-17 14:09] LABS: ALT 22 U/L (14-59); AST 15 U/L (15-37); Albumin 3.9 g/dL (3.4-5.0); Alkaline Phosphatase 77 U/L (46-116); Anion Gap 9.9 mmol/L (3-11); BUN 12 mg/dL (7-18); Bilirubin, Total 0.2 mg/dL (0.2-1.0); CO2 23.1 mmol/L (21.0-32.0); CREATININE 0.9 mg/dL (0.55-1.02); Calcium 9.3 mg/dL (8.5-10.1); Calculated LDL 172 mg/dL (<100); Chloride 103 mmol/L (98-107); Cholesterol 266 mg/dL (<200); Glucose 103 mg/dL (74-106); HDL Cholesterol 70 mg/dL (40-60); Potassium 4.6 mmol/L (3.5-5.1); Sodium 136 mmol/L (136-145); Total Protein 7.7 g/dL (6.4-8.2); Triglyceride 124 mg/dL (<150)
[2021-11-17 14:14] LABS: Hemoglobin A1C 5.5 % (<5.7)
== END 2021-11-17 15:33 | disposition home or self-care (01) ==
LOC: NCHCN 15:32
PROVIDERS: PCP Physician Assistant Medical; Visit Provider Physician Assistant Medical
DX: R73.03 Prediabetes (principal); E78.5 Hyperlipidemia, unspecified
CPT/HCPCS: 80053; 80061; 83036

== ENCOUNTER 2021-11-19 02:27 | Outpatient (CLI) | payer OTHER, SELFPAY | END 2021-11-19 02:28 | disposition home or self-care (01) | LOC: LOS 02:27 | PROVIDERS: PCP Physician Assistant Medical ==